=== PATIENT | male | born 1940 | race Caucasian/White ===

== ENCOUNTER 2016-05-11 14:09 | Emergency (ER) | payer MEDICARE, BC ==
[2016-02-08 10:47] VITALS: BMI 23.0
[~2016-05-11 14:09] MED LIST: ASPIRIN81 MG PO; COUMADIN7.5 MG PO; IPRAT-ALBUT 0.5-3 ML UPD; LISINOPRIL-HCTZ1 T13 PO; LOPRESSOR25 MG PO; PROTONIX40 MG PO; SOMA350 MG PO; ZESTORETIC 20-1 EACH PO; ZOCOR40 MG PO
[2016-05-11 15:37] LABS: BASOPHILS 0.3 % (0.0-2.0); EOSINOPHILS 2.9 % (0-7); HEMATOCRIT 33.1 % (42.0-54.0); HEMOGLOBIN 11.4 g/dL (13.5-17.5); IMMATURE GRANULOCYTES 0.2 % (0-5); LYMPHOCYTES 7.5 % (15-50); MCH 27.9 pg (26.0-34.0); MCHC 34.4 g/dL (31.0-37.0); MCV 81.1 fL (80.0-100.0); MEAN PLATELET VOLUME 8.5 fL (7.4-10.4); MONOCYTES 7.2 % (2-11); NEUTROPHILS 81.9 % (40-80); PLATELET COUNT 303 10x3/uL (130-400); RBC 4.08 10x6/uL (4.20-6.10); RDW 13.7 % (11.5-14.5); WBC 6.2 10x3/uL (4.8-10.8)
[2016-05-11 15:59] LABS: BILIRUBIN - TOTAL 1.09 mg/dL (0.2-1.3); CALCIUM 8.9 mg/dL (8.5-10.1); CREATININE - SERUM 1.1 mg/dL (0.6-1.3); PROTEIN - SERUM 7.1 g/dL (6.4-8.2); TROPONIN-I 0.024 ng/mL (0.000-0.060)
[2016-05-11 16:01] LABS: POTASSIUM - SERUM 4.9 mmol/L (3.5-5.1)
[2016-05-11 16:02] LABS: ANION GAP 12.9 mmol/L (8-16)
== END 2016-05-11 16:54 | disposition home or self-care (01) ==
LOC: D.ER 14:09
PROVIDERS: Physician Assistant
DX: M54.12 Radiculopathy, cervical region (principal); E87.1 Hypo-osmolality and hyponatremia; F17.200 Nicotine dependence, unspecified, uncomplicated; I10 Essential (primary) hypertension; D64.9 Anemia, unspecified; E78.00 Pure hypercholesterolemia, unspecified

== ENCOUNTER 2016-05-19 10:08 | Inpatient (IN) | payer MEDICARE, BC ==
[~2016-05-19] VITALS: Ht 177.8 cm; Wt 71.8 kg
[2016-05-19 10:42] LABS: BASOPHILS 0.4 % (0.0-2.0); EOSINOPHILS 2.2 % (0-7); HEMATOCRIT 33.7 % (42.0-54.0); HEMOGLOBIN 11.6 g/dL (13.5-17.5); IMMATURE GRANULOCYTES 0.2 % (0-5); LYMPHOCYTES 7.4 % (15-50); MCH 28.2 pg (26.0-34.0); MCHC 34.4 g/dL (31.0-37.0); MEAN PLATELET VOLUME 8.5 fL (7.4-10.4); MONOCYTES 8.4 % (2-11); NEUTROPHILS 81.4 % (40-80); PLATELET COUNT 316 10x3/uL (130-400); RBC 4.11 10x6/uL (4.20-6.10); RDW 13.7 % (11.5-14.5); WBC 8.1 10x3/uL (4.8-10.8)
[2016-05-19 11:00] LABS: ALBUMIN 3.9 g/dL (3.4-5.0); ANION GAP 13.8 mmol/L (8-16); BILIRUBIN - TOTAL 0.75 mg/dL (0.2-1.3); CALCIUM 9.3 mg/dL (8.5-10.1); CARBON DIOXIDE 25.7 mmol/L (21.0-32.0); CREATININE - SERUM 1.1 mg/dL (0.6-1.3); POTASSIUM - SERUM 4.5 mmol/L (3.5-5.1); PROTEIN - SERUM 7.4 g/dL (6.4-8.2)
[2016-05-19] MEDS ORDERED: NORCO 7.5/325 T1 TA1 PO (13:03)
--- NOTE | 2016-05-19 13:04 | NUR ---
RECEIVED PT FROM ER. IV NS TO RIGHT FA NS @ 100. PT IS ALERT AND ORIENTED. STATED HE DRINKS 2 ADRY LIGHT EVERY AFTERNOON TO HELP RELAX HIM AND TO HELP HIM SLEEP AT NIGHT. PT ALSO STATED HE DOES NOT SLEEP AT NIGHT WHEN HE WAS HERE LAST TIME. THAT THE SPRAY DRY OPERATOR HAD AT [facility] ORDERED MELATONIN AND IT DID NOT WORK AT ALL.
[2016-05-19 13:10] VITALS: BMI 22.1
[2016-05-19] MEDS ORDERED: PRINIVIL20 MG PO (15:01)
[2016-05-19 15:13] LABS: INR 2.7 (0.85-1.17); PROTIME 28.9 SECONDS (11.6-15.0)
[2016-05-19 15:21] LABS: HEMOGLOBIN A1C 5.3 % (4.8-6.0)
[2016-05-19 16:00] VITALS: BP 173/78
[2016-05-19 19:41] VITALS: BP 130/68
--- NOTE | 2016-05-19 22:37 | NUR ---
URINE SPECIMEN COLLECTED AND SENT TO LAB.
[2016-05-19 22:52] LABS: CREATININE - URINE 79.7 mg/dL (30-125); POTASSIUM - URINE 17.8 MMOL/L (12.0-62.0)
--- NOTE | 2016-05-19 23:48 | NUR ---
PATIENT IN BED, ALERT AND ORIENTED. I.V PATENT AND INFUSING. ASSESSMENT COMPLETE PER FLOWSHEET. BED IN LOW POSITION, CALL LIGHT WITHIN REACH. CONTINUE TO MONITOR
[2016-05-20 01:20] VITALS: BP 158/872
[2016-05-20 04:05] LABS: BASOPHILS 0.4 % (0.0-2.0); EOSINOPHILS 5.7 % (0-7); HEMATOCRIT 28.7 % (42.0-54.0); LYMPHOCYTES 11.5 % (15-50); MCH 28.7 pg (26.0-34.0); MCHC 34.8 g/dL (31.0-37.0); MCV 82.2 fL (80.0-100.0); MEAN PLATELET VOLUME 8.1 fL (7.4-10.4); MONOCYTES 11.3 % (2-11); NEUTROPHILS 71.1 % (40-80); RBC 3.49 10x6/uL (4.20-6.10); RDW 13.8 % (11.5-14.5)
[2016-05-20 04:06] LABS: PLATELET COUNT 235 10x3/uL (130-400); WBC 4.7 10x3/uL (4.8-10.8)
[2016-05-20 04:14] LABS: PROTIME 33.7 SECONDS (11.6-15.0)
[2016-05-20 04:16] LABS: INR 3.28 (0.85-1.17)
[2016-05-20 04:19] LABS: CALC OSMOLALITY 250 mosm/kg (275-300); CALCIUM 8.6 mg/dL (8.5-10.1); CARBON DIOXIDE 28.9 mmol/L (21.0-32.0); CHLORIDE - SERUM 92 mmol/L (98-107); CREATININE - SERUM 0.9 mg/dL (0.6-1.3); GLUCOSE 90 mg/dL (74-106); SODIUM 124 mmol/L (136-145); UREA NITROGEN 14 mg/dL (7-18); URIC ACID 3.8 mg/dL (2.6-7.2); eGFR NON AFRICAN AMERICAN 87 mL/min (90-120)
--- NOTE | 2016-05-20 07:00 | NUR ---
Pt. was received at the beginning of this shift sitting in chair beside his bed. Awake and oriented x 3. Denied any needs at this time. Stable condition observed. Vital signs: Temp. 97.7, pulse 60, resp. 19, b/p 136/78, 02Sat. 92%. Telementry is on and working properly. Will be monitoring him and assisting prn with adl's. Call light is in reach.
[2016-05-20 08:01] VITALS: BP 136/78
[2016-05-20 11:46] VITALS: BP 155/68
--- NOTE | 2016-05-20 12:00 | NUR ---
Pt. continues to have an uneventful day. New order received for a CT Head without contrast. No complaints to staff. Stable condition observed.
[2016-05-20 13:20] VITALS: Ht 177.8 cm; Wt 71.8 kg
--- NOTE | 2016-05-20 15:12 | NUR ---
RATIONALE FOR SCD'S EXPLAINED TO PATIENT AND DTR. REFUSED SCD'S
--- NOTE | 2016-05-20 15:28 | NUR ---
Pt complained of a headach and received a [place] 7.5mg tab for this discomfort. His daughter was visiting him but left. Will continue to observe him. Ice water and warm blanket provided to pt. Call light in reach.
[2016-05-20 15:56] VITALS: BP 152/62
--- NOTE | 2016-05-20 17:16 | NUR ---
Pt's headache went away with the prn medication given to him earlier. He is eatting his supper and talkative with staff. IV still infusing via pump at prescribed rate of flow with no difficulty. Monitoring him continues.
[2016-05-20 20:20] VITALS: BP 141/68
[2016-05-21 00:15] VITALS: BP 167/71
[2016-05-21 04:20] VITALS: BP 142/71
[2016-05-21 05:19] LABS: BASOPHILS 0.4 % (0.0-2.0); HEMATOCRIT 30.1 % (42.0-54.0); HEMOGLOBIN 10.2 g/dL (13.5-17.5); IMMATURE GRANULOCYTES 0.2 % (0-5); LYMPHOCYTES 10.8 % (15-50); MCHC 33.9 g/dL (31.0-37.0); MCV 82.7 fL (80.0-100.0); MEAN PLATELET VOLUME 8.6 fL (7.4-10.4); MONOCYTES 7.9 % (2-11); NEUTROPHILS 75.7 % (40-80); PLATELET COUNT 273 10x3/uL (130-400); RBC 3.64 10x6/uL (4.20-6.10); RDW 13.9 % (11.5-14.5); WBC 5.4 10x3/uL (4.8-10.8)
[2016-05-21 05:30] LABS: INR 2.61 (0.85-1.17); PROTIME 28.1 SECONDS (11.6-15.0)
[2016-05-21 05:49] LABS: CALC OSMOLALITY 255 mosm/kg (275-300); CALCIUM 8.7 mg/dL (8.5-10.1); CARBON DIOXIDE 24.6 mmol/L (21.0-32.0); CHLORIDE - SERUM 94 mmol/L (98-107); CREATININE - SERUM 0.9 mg/dL (0.6-1.3); GLUCOSE 91 mg/dL (74-106); POTASSIUM - SERUM 3.9 mmol/L (3.5-5.1); SODIUM 127 mmol/L (136-145); UREA NITROGEN 15 mg/dL (7-18); eGFR NON AFRICAN AMERICAN 87 mL/min (90-120)
--- NOTE | 2016-05-21 07:23 | NUR ---
RECEIVED PT REPORT. NO OTHER NEEDS AT THIS TIME. WILL CONTINUE TO [facility].
[2016-05-21 08:39] VITALS: BP 176/72
[2016-05-21 09:43] LABS: % SATURATION 10 % (15-55); IRON 37 ug/dl (35-150); TOTAL IRON BIND CAPACITY 361 ug/dl (260-445); UNSAT IRON BIND CAPACITY 324 ug/dl (150-375)
--- NOTE | 2016-05-21 10:19 | NUR ---
PT IS ALERT. ASSESSMENT DONE PER FLOWSHEET. NO OTHER NEEDS AT THIS TIME. WILL CONTINUE TO MONITOR.
[2016-05-21 12:22] VITALS: BP 168/75
--- NOTE | 2016-05-21 13:48 | NUR ---
NO SS OF DISTRES WILL CONTINUE TO MONITOR.
[2016-05-21 16:14] VITALS: BP 135/76
--- NOTE | 2016-05-21 19:10 | NUR ---
PT. SITTING UP IN CHAIR IN ROOM WATCHING TV. VOICED NEED FOR PAIN MEDICATION HIS NECK AND BACK HAVE JUST STARTED TO HURT. INFORMED PT. I WOULD GET HIS NORCO FOR HIM. ASSESSMENT COMPLETED. IV OF IRON INFUSING VIA PUMP AT 127CC/HR WITHOUT ANY ALARMS TO RIGHT FOREARM. PT. REPORTS HE'S GOING TO GET TO GO HOME TOMORROW IF EVERYTHING STAYS STABLE. CALL LIGHT WITHIN REACH.
[2016-05-21 20:02] VITALS: BP 195/81
--- NOTE | 2016-05-21 22:01 | NUR ---
PT. STILL SITTING UP IN CHAIR WITH LE'S ELEVATED AND WATCHING TV. IV CONTINUES TO INFUSE VIA PUMP WITHOUT ANY ALARMS AND PT. HAS HIS CALL LIGHT WITHIN REACH.
--- NOTE | 2016-05-22 00:05 | NUR ---
PT. IN CHAIR WITH LE'W ELEVATED WITH EYES CLOSED AND RESP. EVEN. IV INFUSING VIA PUMP WITHOUT ANY ALARMS AND PT. HAS HIS CALL LIGHT WITHIN REACH.
[2016-05-22 00:14] VITALS: BP 153/47
--- NOTE | 2016-05-22 02:01 | NUR ---
IV WITH IRON HAS BEEN COMPLETED. DISCONNECTED LINE FROM PT., FLUSHED IV SITE TO RIGHT FOREARM WITH N.S. AND LOCKED IT AFTER PLACING ORANGE ALCOHOL CAP ON END CAP. PT. DENIES ANY ADVERSE AFFECTS FROM THE IRON INFUSION. PT. CONTINUES TO SIT UP IN THE RECLINER WITH LE'S ELEVATED AND HAS HIS CALL LIGHT WITHIN REACH. PT. DENIES ANY NEEDS AT THIS TIME.
--- NOTE | 2016-05-22 04:03 | NUR ---
PT. CONTINUES TO BE UP IN RECLINER WITH LE'S ELEVATED AND CALL LIGHT WITHIN REACH. PT. HAS NO VOICED NEEDS AT THIS TIME AND IS WATCHING TV.
[2016-05-22 04:13] VITALS: BP 177/81
[2016-05-22 06:07] LABS: BASOPHILS 0.3 % (0.0-2.0); EOSINOPHILS 7.1 % (0-7); HEMATOCRIT 27.8 % (42.0-54.0); HEMOGLOBIN 9.6 g/dL (13.5-17.5); IMMATURE GRANULOCYTES 0.3 % (0-5); LYMPHOCYTES 6.8 % (15-50); MCH 28.7 pg (26.0-34.0); MCHC 34.5 g/dL (31.0-37.0); MEAN PLATELET VOLUME 8.5 fL (7.4-10.4); MONOCYTES 12.6 % (2-11); NEUTROPHILS 72.9 % (40-80); PLATELET COUNT 221 10x3/uL (130-400); RBC 3.35 10x6/uL (4.20-6.10); RDW 14.1 % (11.5-14.5)
[2016-05-22 06:11] LABS: WBC 3.8 10x3/uL (4.8-10.8)
[2016-05-22 06:23] LABS: CALC OSMOLALITY 252 mosm/kg (275-300); CALCIUM 8.5 mg/dL (8.5-10.1); CARBON DIOXIDE 24.9 mmol/L (21.0-32.0); CHLORIDE - SERUM 93 mmol/L (98-107); CREATININE - SERUM 0.8 mg/dL (0.6-1.3); GLUCOSE 108 mg/dL (74-106); POTASSIUM - SERUM 4.2 mmol/L (3.5-5.1); SODIUM 126 mmol/L (136-145); eGFR NON AFRICAN AMERICAN > 90 mL/min (90-120)
[2016-05-22 06:35] LABS: UREA NITROGEN 11 mg/dL (7-18)
--- NOTE | 2016-05-22 06:54 | NUR ---
RECEIVED PT REPORT. WILL CONTINUE PLAN OF CARE. NO OTHER NEEDS. WILL CONTINUE TO MONITOR.
[2016-05-22 07:25] LABS: INR 1.9 (0.85-1.17); PROTIME 21.8 SECONDS (11.6-15.0)
[2016-05-22 08:00] VITALS: BP 156/68
--- NOTE | 2016-05-22 10:33 | NUR ---
PT IS ALERT. ASSESSMENT DONE PER FLOWSHEET. NO OTHER NEEDS AT THIS TIME. WILL CONTINUE TO MONTIOR.
[2016-05-22 11:53] VITALS: BP 143/71
[2016-05-22 15:57] VITALS: BP 149/70
--- NOTE | 2016-05-22 19:30 | NUR ---
SITTING UP IN BEDSIDE CHAIR. UP AD MIRIAM W/O DIFF. DENIES NEEDS AT THIS TIME. C/L IN REACH. RT FA SL INTACT AND PATENT WITH NO R/S NOTED AT SITE. TELEMETRY SHOWING HR SR WITH PADS. CONTINUE TO MONITOR,
[2016-05-22 20:36] VITALS: BP 100/55
[2016-05-23 01:24] VITALS: BP 101/52
[2016-05-23 04:36] LABS: BASOPHILS 0.3 % (0.0-2.0); EOSINOPHILS 3.9 % (0-7); HEMATOCRIT 26.7 % (42.0-54.0); HEMOGLOBIN 8.9 g/dL (13.5-17.5); IMMATURE GRANULOCYTES 0.6 % (0-5); LYMPHOCYTES 8.9 % (15-50); MCH 27.9 pg (26.0-34.0); MCHC 33.3 g/dL (31.0-37.0); MCV 83.7 fL (80.0-100.0); MEAN PLATELET VOLUME 8.5 fL (7.4-10.4); NEUTROPHILS 73.3 % (40-80); PLATELET COUNT 184 10x3/uL (130-400); RBC 3.19 10x6/uL (4.20-6.10); RDW 14.2 % (11.5-14.5); WBC 3.6 10x3/uL (4.8-10.8)
[2016-05-23 04:46] LABS: PROTIME 17.5 SECONDS (11.6-15.0)
[2016-05-23 04:47] LABS: CALC OSMOLALITY 258 mosm/kg (275-300); CALCIUM 8.2 mg/dL (8.5-10.1); CARBON DIOXIDE 27.6 mmol/L (21.0-32.0); CHLORIDE - SERUM 94 mmol/L (98-107); GLUCOSE 103 mg/dL (74-106); POTASSIUM - SERUM 3.7 mmol/L (3.5-5.1); SODIUM 129 mmol/L (136-145); UREA NITROGEN 12 mg/dL (7-18); eGFR NON AFRICAN AMERICAN 77 mL/min (90-120)
[2016-05-23 04:50] LABS: INR 1.45 (0.85-1.17)
[2016-05-23 06:26] VITALS: BP 134/68
--- NOTE | 2016-05-23 07:46 | NUR ---
SITTING UP IN CHAIR WHILE AM ROUDNING DONE. DENIES NEEDS AT PRESENT TIME. NO FREE WATER SIGN IS SEEN. OFFERED JUICE, REFUSED WANTED "POP". GIVEN. ON ROOM AIR. ON HEART MONITOR SHOWING SR, W OCC PAC, HR 82. WILL CONTINUE TO MONITOR.
[2016-05-23 07:47] VITALS: BP 128/55
--- NOTE | 2016-05-23 09:33 | NUR ---
UP IN CHAIR SINCE AM ROUNDING MADE. HAD COMPLAINTED OF "SORE NECK" EARLY IN SHIFT, NORCO WAS GIVEN. WILL CONTINUE TO MONITOR.
[2016-05-23 11:10] VITALS: BP 156/70
[2016-05-23] MEDS ORDERED: THERMOTABS 1 GM1 GM PO (11:21)
--- NOTE | 2016-05-23 12:51 | NUR ---
VERBAL AND WRITTEN DISCHARGE INSTRUCTIONS GIVEN TO PATIENT AND DAUGHTER. SALINE LOCK REMOVED WITH CATH TIP INTACT. DISCHARGED HOME VIA WHEELCHAIR.
--- NOTE | 2016-05-23 13:31 | NUR ---
Patient Name: SHELIA FOLEY Admission Status: ER Accout number: [id number] Admission Date: 05-20-2016 : 1940 Admission Diagnosis:HYPO-OSMOLALITY AND HYPONATREMIA Attending: TRE Current LOS: 3 Anticipated DC Date: 05-23-2016 Planned Disposition: Home Primary Insurance: MEDICARE A & B Discharge Planning Comments: * Is the patient Alert and Oriented? Yes 0 * How many steps to enter\exit or inside your home? NONE 0 * PCP DR. BRUNER 0 * Pharmacy [facility] 0 * Preadmission Environment Home Alone 0 * ADLs Independent 0 * Equipment Nebulizer Oxygen 0 * Other Equipment NIGHT TIME OXYGEN ONLY [facility] - MEDICAL EQUIPMENT PROVIDER 0 * List name and contact numbers for known caregivers / representatives who currently or will assist patient after discharge: LOBITO VILLANUEVA, DAUGHTER, 0 * Community resources currently utilized None 0 * Please name any agencies selected above. NONE 0 * Additional services required to return to the preadmission environment? No 0 * Can the patient safely return to the preadmission environment? Yes 0 * Has this patient been hospitalized within the prior 30 days at any hospital? No 0 CM MET WITH PT IN ROOM TO DISCUSS DISCHARGE PLANNING AND NEEDS. PT REPORTS LIVING AT HOME INDEPENDENTLY AND ALONE. PT HAS OXYGEN FOR NIGHT TIME USE AND A NEBULIZER FROM [facility]. PT HAS NO OUTSIDE SERVICES ASSISTING IN THE HOME. CM DISCUSSED AVAILABILITY OF HOME HEALTH, REHAB SERVICES AND MEDICAL EQUIPMENT. PT DENIES DISCHARGE NEEDS, STATES HIS DAUGHTER [place] AND CAN ASSIST IF NEEDED. PT REPORTS HIS DAUGHTER LOBITO WILL PICK HIM UP FOR DISCHARGE HOME. IMPORTANT MESSAGE FROM MEDICARE PROVIDED AND EXPLAINED. Superintendent: Reji Reynaga
--- NOTE | 2016-05-26 13:39 | DS ---
PATIENT:SHELIA FOLEY I :40 MEDICAL RECORD: [id number] DISCHARGE SUMMARY ADMISSION DATE: 05/20/16 DISCHARGE DATE: 05/23/16 DATE OF ADMISSION: 05/19/2016 DATE OF DISCHARGE: 05/23/2016 ADMITTING DIAGNOSES: Hyponatremia, anemia unknown etiology, nicotine dependence with withdrawal, unintentional weight loss, headache, weakness, serum chloride decreased, hyperglycemia, chronic admission problems, peripheral vascular disease, on chronic Coumadin, coronary artery disease, chronic obstructive pulmonary disease, carotid stenosis, chronic back pain. HOSPITAL COURSE: This is a 76-year-old white male, patient of Dr. Nieves, admitted with diagnoses as outlined above. Details are well-outlined in the history of the present illness. All events, lab procedures, diagnostic testing are well documented in the records. The patient was admitted, appropriate home medicines continued. Lisinopril with his HCTZ was held. INR a little elevated and held on admission. He was started on IV fluids of normal saline, nephrology consulted, Dr. Gu's recommendations were followed. Chest x-ray showing emphysema changes with prior granulomatous disease. CT of the head showed moderate atrophy and mild findings of chronic small vessel ischemia, no gross abnormality of the yoselin visualized. Hemoglobin A1c checked and noted to be 5.3. The patient was on nicotine patch. Blood pressure spiked a little ____ restarted his CONSUELO inhibitor, sodium overall improved with some IV fluids and was started on salt tablets and put on the free water restriction. His baseline sodium was thought to be 130. The patient was given some IV iron per renal. Renal took over the management of the iron deficient anemia, they gave some IV iron. He is stable for dismissal home today. OBJECTIVE: VITAL SIGNS: Afebrile, pulse 81, respirations 18, blood pressure 156/70. LABORATORY DATA: White count 3.6, hemoglobin 8.9, platelets 184. INR 1.45, we did restart his Coumadin. Sodium 129, potassium 3.7, chloride 94, BUN 12, serum creatinine 1, glucose 103. He is dismissed home. DIAGNOSES: Hyponatremia, anemia unknown etiology, nicotine dependence with withdrawal, unintentional weight loss, headache, weakness, serum chloride decreased, hyperglycemia, chronic admission problems, peripheral vascular disease, on chronic Coumadin, coronary artery disease, chronic obstructive pulmonary disease, carotid stenosis, chronic back pain. They also include iron deficient anemia, chronic hyponatremia, chronic neck pain, chronic headache and hypertension. Greater than 30 minutes was spent on this discharge. TRANSINT:[id number] Voice Confirmation ID: [id number] DOCUMENT ID: [id number] Dictated By: NEIL JESSICA JOINT SEALER SUMMARY REPORT [id number] SHELIA FOLEY I I have interviewed/examined the above patient and agree with these documented findings. ARTEM TIDWELL M.D. at 1339 at 1621 CC: [id number] DICTATION DATE: 05/23/16 1318 LITHOGRAPHIC PHOTOGRAPHER: 05/24/16 0045 DIS IN 05/23/16 [id number] [place] [address]
== END 2016-05-23 12:51 | disposition home or self-care (01) | DRG 641 ==
LOC: D.ER 10:08 → D.M2 12:11 → OBSVTIME 12:12 → D.M2 05-20 12:06
PROVIDERS: Emergency Medicine; Internal Medicine; ADMIT Family Medicine
DX: E87.1 Hypo-osmolality and hyponatremia (principal); F17.203 Nicotine dependence unspecified, with withdrawal; G31.9 Degenerative disease of nervous system, unspecified; D64.9 Anemia, unspecified; R63.4 Abnormal weight loss; J44.9 Chronic obstructive pulmonary disease, unspecified; M54.2 Cervicalgia; G89.29 Other chronic pain; I10 Essential (primary) hypertension; B35.1 Tinea unguium; I25.10 Atherosclerotic heart disease of native coronary artery without angina pectoris; Z79.01 Long term (current) use of anticoagulants; I73.9 Peripheral vascular disease, unspecified; R73.9 Hyperglycemia, unspecified; R51 Headache

== ENCOUNTER 2016-05-25 15:39 | Inpatient (IN) | payer MEDICARE, BC ==
[~2016-05-25] VITALS: Ht 177.8 cm; Wt 66.3 kg
[~2016-05-25 15:39] MED LIST changes: +NORCO 7.5/325 T1 TA1 PO; +PRINIVIL20 MG PO; +THERMOTABS 1 GM1 GM PO
[2016-05-25 17:25] LABS: BASOPHILS 0 % (0.0-2.0); EOSINOPHILS 0.6 % (0-7); HEMATOCRIT 29.7 % (42.0-54.0); HEMOGLOBIN 9.8 g/dL (13.5-17.5); IMMATURE GRANULOCYTES 0.4 % (0-5); LYMPHOCYTES 4.2 % (15-50); MCH 27.8 pg (26.0-34.0); MCV 84.4 fL (80.0-100.0); MEAN PLATELET VOLUME 8.4 fL (7.4-10.4); MONOCYTES 8.5 % (2-11); NEUTROPHILS 86.3 % (40-80); PLATELET COUNT 180 10x3/uL (130-400); RBC 3.52 10x6/uL (4.20-6.10); RDW 14.6 % (11.5-14.5)
[2016-05-25 17:51] LABS: ALBUMIN 3.2 g/dL (3.4-5.0); ALKALINE PHOSPHATASE 52 U/L (46-116); ALT (SGPT) 34 U/L (10-68); CALC OSMOLALITY 255 mosm/kg (275-300); CALCIUM 8.5 mg/dL (8.5-10.1); CARBON DIOXIDE 28.2 mmol/L (21.0-32.0); CHLORIDE - SERUM 92 mmol/L (98-107); CREATININE - SERUM 0.9 mg/dL (0.6-1.3); GLUCOSE 98 mg/dL (74-106); PROTEIN - SERUM 6.1 g/dL (6.4-8.2); SODIUM 127 mmol/L (136-145); UREA NITROGEN 14 mg/dL (7-18); eGFR NON AFRICAN AMERICAN 87 mL/min (90-120)
[2016-05-25 17:59] LABS: PRO BNP 591 pg/mL (0-450)
--- NOTE | 2016-05-25 23:33 | NUR ---
PT ARRIVED TO FLOOR
[2016-05-26] VITALS (7 sets, daily range): BP systolic 143–190; BP diastolic 60–90; Ht 177.8 cm; Wt 66.3 kg
--- NOTE | 2016-05-26 07:39 | NUR ---
RATIONALE FOR SCD'S EXPLAINED. REFUSED SCD'S
[2016-05-26 12:48] LABS: BASOPHILS 0 % (0.0-2.0); EOSINOPHILS 0 % (0-7); HEMATOCRIT 31.9 % (42.0-54.0); HEMOGLOBIN 10.8 g/dL (13.5-17.5); IMMATURE GRANULOCYTES 0.2 % (0-5); LYMPHOCYTES 3.4 % (15-50); MCH 28.3 pg (26.0-34.0); MCHC 33.9 g/dL (31.0-37.0); MCV 83.7 fL (80.0-100.0); MEAN PLATELET VOLUME 8.6 fL (7.4-10.4); MONOCYTES 3.6 % (2-11); NEUTROPHILS 92.8 % (40-80); PLATELET COUNT 199 10x3/uL (130-400); RBC 3.81 10x6/uL (4.20-6.10); RDW 14.6 % (11.5-14.5); WBC 4.1 10x3/uL (4.8-10.8)
[2016-05-26 13:01] LABS: ANION GAP 12.1 mmol/L (8-16); CARBON DIOXIDE 29.2 mmol/L (21.0-32.0); CREATININE - SERUM 1.3 mg/dL (0.6-1.3)
[2016-05-26 13:02] LABS: POTASSIUM - SERUM 3.3 mmol/L (3.5-5.1)
[2016-05-26 13:16] LABS: INR 2.06 (0.85-1.17); PROTIME 23.2 SECONDS (11.6-15.0)
--- NOTE | 2016-05-26 23:07 | NUR ---
SITTING UP IN BEDSIDE CHAIR. ALERT ORIENTED CONVERSANT. DENIES NEEDS. NO ACUTE DISTRESS NOTED. PT FLUID RESTRICTION EXPLAINED. PT STATED UNDERSTANDING.
[2016-05-27] VITALS: BP 198/66
--- NOTE | 2016-05-27 00:10 | NUR ---
SUPERVISOR WASH HOUSE AT BEDSIDE TO OBTAIN VITALS, CALL LIGHT IN REACH. WILL CONTINUE WITH PLAN OF CARE.
[2016-05-27 04:00] VITALS: BP 155/61
[2016-05-27 05:35] LABS: INR 2.44 (0.85-1.17); PROTIME 26.6 SECONDS (11.6-15.0)
[2016-05-27 05:42] LABS: BASOPHILS 0 % (0.0-2.0); EOSINOPHILS 0 % (0-7); HEMOGLOBIN 10.4 g/dL (13.5-17.5); IMMATURE GRANULOCYTES 0.1 % (0-5); LYMPHOCYTES 1.6 % (15-50); MCHC 33.5 g/dL (31.0-37.0); MCV 83.3 fL (80.0-100.0); MEAN PLATELET VOLUME 8.7 fL (7.4-10.4); MONOCYTES 5.8 % (2-11); NEUTROPHILS 92.5 % (40-80); PLATELET COUNT 202 10x3/uL (130-400); RBC 3.72 10x6/uL (4.20-6.10); RDW 14.6 % (11.5-14.5)
[2016-05-27 05:46] LABS: ANION GAP 10.4 mmol/L (8-16); CALCIUM 8.7 mg/dL (8.5-10.1); CARBON DIOXIDE 32.8 mmol/L (21.0-32.0); CREATININE - SERUM 1.1 mg/dL (0.6-1.3); POTASSIUM - SERUM 3.2 mmol/L (3.5-5.1)
[2016-05-27 06:08] LABS: WBC 6.9 10x3/uL (4.8-10.8)
--- NOTE | 2016-05-27 07:00 | NUR ---
Pt was received at the beginning of this shift. He was awake and oriented x 3. No verbal complaints voiced at this time other than being disturbed while he's trying to sleep during the night. Vital signs wnl. Call light is in reach. No signs of any discomfort or distress. Will continue to monitor and assist prn with adl's.
[2016-05-27 08:00] VITALS: BP 129/63
[2016-05-27 12:00] VITALS: BP 139/62
[2016-05-27 16:00] VITALS: BP 124/62
--- NOTE | 2016-05-27 17:30 | NUR ---
Pt continues to be stable this shift. Rt. AC with saline lock. Pt. has had an uneventful day.
--- NOTE | 2016-05-27 18:41 | NUR ---
PT HAS REFUSED TO WEAR THE SCD'S THAT WERE ORDERED FOR HIM TO WEAR THIS SHIFT. PT. UNDERSTANDS WHAT THEY ARE FOR AND DOES NOT WANT TO WEAR THEM.
--- NOTE | 2016-05-27 19:10 | NUR ---
RECEIVED REPORT, PT SITTING UP IN CHAIR, 02-2L, IV-RAC-SL, DENIES ANY NEEDS, CALL LIGHT IN REACH, WILL CONTINUE TO MONITOR
[2016-05-27 21:01] VITALS: BP 132/61
--- NOTE | 2016-05-27 23:59 | NUR ---
NO CHANGES NOTED IN ASSESSMENT. NO NEEDS VOICED. CALL LIGHT WITHIN REACH. WILL CONT TO MONITOR.
[2016-05-28 01:01] VITALS: BP 139/62
--- NOTE | 2016-05-28 04:26 | NUR ---
ASSESSMENT COMPLETE, K+ WAS 3.2- FOLLOWED ELECTOPROTOL, CALL LIGHT IN REACH, BED IS LOW, SRX2
[2016-05-28 04:57] VITALS: BP 142/61
[2016-05-28 05:14] LABS: BASOPHILS 0 % (0.0-2.0); EOSINOPHILS 0 % (0-7); HEMATOCRIT 32.1 % (42.0-54.0); HEMOGLOBIN 10.7 g/dL (13.5-17.5); IMMATURE GRANULOCYTES 0.4 % (0-5); LYMPHOCYTES 2.8 % (15-50); MCH 28.2 pg (26.0-34.0); MCHC 33.3 g/dL (31.0-37.0); MCV 84.5 fL (80.0-100.0); MEAN PLATELET VOLUME 8.5 fL (7.4-10.4); MONOCYTES 4.2 % (2-11); NEUTROPHILS 92.6 % (40-80); PLATELET COUNT 211 10x3/uL (130-400); RDW 14.7 % (11.5-14.5); WBC 13.4 10x3/uL (4.8-10.8)
[2016-05-28 05:30] LABS: INR 3.73 (0.85-1.17); PROTIME 37.4 SECONDS (11.6-15.0)
[2016-05-28 05:33] LABS: ANION GAP 9.4 mmol/L (8-16); CARBON DIOXIDE 32.2 mmol/L (21.0-32.0); CREATININE - SERUM 1.2 mg/dL (0.6-1.3); POTASSIUM - SERUM 3.6 mmol/L (3.5-5.1)
[2016-05-28 08:06] VITALS: BP 139/62
[2016-05-28 12:00] VITALS: BP 131/61
[2016-05-28] MEDS ORDERED: PRINIVIL20 MG PO (12:38)
[2016-05-28] MEDS ORDERED: LASIX40 MG PO (12:39)
[2016-05-28] MEDS ORDERED: PREDNISONE10 MG PO (12:40)
--- NOTE | 2016-05-28 13:38 | NUR ---
PT ASSESSMENT COMPLETED NO DISTRESS OBSERVED CALL LIGHT IN REACH SRX2 BED RESPERATIONS EVEN AND UNLBAORED PT INFORMED OF DISCHARGE PLANNING AND VERBALIZED UNDERSTANDING DAUGHTER CALLED TO PICK PT UP
--- NOTE | 2016-05-28 13:40 | NUR ---
PT DAUGHTER ARRIVED TO FLOOR AND DISCHARGE INSTRUCTIONS REVIEWED WITH PT AND DAUGHTER BOTH VERBALIZED UNDERSTANDING ESCORTED OFF FLOOR WITH WHEELCHAIR ASSITANCE
--- NOTE | 2016-05-28 15:11 | NUR ---
SPOKE TO NEIL CHEEK APN REGARDING INR 3.73 AND PT DISCHARGED HOME ON COUMADIN ORDER TO HOLD COMADIN TODAY AND HAVE INR CHECKED ON MONDAY PT CALLED AND NOTIFIED OF LAB TEST FOR MONDAY AND TO HOLD COMUDIN AND PT VERBALIZED UNDERSTANDING
== END 2016-05-28 13:40 | disposition home or self-care (01) | DRG 191 ==
LOC: D.ER 15:39 → OBSVTIME 22:46 → D.M2 22:46
PROVIDERS: Emergency Medicine; ADMIT Family Medicine
DX: J44.1 Chronic obstructive pulmonary disease with (acute) exacerbation (principal); E87.1 Hypo-osmolality and hyponatremia; F17.203 Nicotine dependence unspecified, with withdrawal; I73.9 Peripheral vascular disease, unspecified; Z79.01 Long term (current) use of anticoagulants; D50.9 Iron deficiency anemia, unspecified; E87.6 Hypokalemia; I25.10 Atherosclerotic heart disease of native coronary artery without angina pectoris; Z95.5 Presence of coronary angioplasty implant and graft; G89.29 Other chronic pain; M54.9 Dorsalgia, unspecified; M54.2 Cervicalgia; I65.29 Occlusion and stenosis of unspecified carotid artery

== ENCOUNTER 2016-05-29 07:13 | Emergency (ER) | payer MEDICARE, BC ==
[2016-05-26 00:41] VITALS: BMI 22.1
[~2016-05-29 07:13] MED LIST changes: +LASIX40 MG PO; +PREDNISONE10 MG PO
[2016-05-29 07:50] LABS: BASOPHILS 0 % (0.0-2.0); EOSINOPHILS 0 % (0-7); HEMOGLOBIN 10.6 g/dL (13.5-17.5); IMMATURE GRANULOCYTES 0.6 % (0-5); LYMPHOCYTES 5.1 % (15-50); MCH 28.5 pg (26.0-34.0); MCHC 33.1 g/dL (31.0-37.0); MEAN PLATELET VOLUME 8.8 fL (7.4-10.4); MONOCYTES 7.5 % (2-11); NEUTROPHILS 86.8 % (40-80); PLATELET COUNT 202 10x3/uL (130-400); RBC 3.72 10x6/uL (4.20-6.10); RDW 14.8 % (11.5-14.5)
[2016-05-29 07:56] LABS: WBC 8.9 10x3/uL (4.8-10.8)
[2016-05-29 07:59] LABS: INR 4.5 (0.85-1.17); PROTIME 43.5 SECONDS (11.6-15.0)
[2016-05-29 08:00] LABS: APTT 73.1 SECONDS (22.8-39.4)
[2016-05-29 08:08] LABS: ALBUMIN 2.9 g/dL (3.4-5.0); ANION GAP 9.7 mmol/L (8-16); BILIRUBIN - TOTAL 0.75 mg/dL (0.2-1.3); CARBON DIOXIDE 34.2 mmol/L (21.0-32.0); CREATININE - SERUM 1.2 mg/dL (0.6-1.3); POTASSIUM - SERUM 3.9 mmol/L (3.5-5.1); PROTEIN - SERUM 6.8 g/dL (6.4-8.2)
== END 2016-05-29 08:41 | disposition home or self-care (01) ==
LOC: D.ER 07:13
PROVIDERS: Emergency Medicine
DX: R04.2 Hemoptysis (principal); J44.1 Chronic obstructive pulmonary disease with (acute) exacerbation; T45.515A Adverse effect of anticoagulants, initial encounter; Y92.019 Unspecified place in single-family (private) house as the place of occurrence of the external cause; I10 Essential (primary) hypertension